=== PATIENT | female | born 1990 | race Two or more races ===

== ENCOUNTER 2019-08-18 18:30 | Emergency (ER) | payer SELFPAY ==
[2019-08-18] MEDS ORDERED: Naloxone 0.4 MG/ML SDV IVPUSH ONE ×2 (18:32→18:37)
[2019-08-18] MEDS ORDERED: Sodium Chloride 0.9% 1,000 ML IV SCH (18:35)
[2019-08-18 19:12] LABS: CHLORIDE,CL 106 mmol/L (98-107); SODIUM,NA 142 mmol/L (136-145)
[2019-08-18 19:21] LABS: BARBITURATE SCREEN,URINE NEGATIVE (NEGATIVE); BENZODIAZEPINES SCREEN,URINE NEGATIVE (NEGATIVE); EDDP,URINE SCREEN NEGATIVE (NEGATIVE); TCA SCREEN,URINE NEGATIVE (NEGATIVE); THC SCREEN,URINE 50 NG/ML NEGATIVE (NEGATIVE)
--- NOTE | 2019-08-18 19:45 | EDM.PDOC ---
ED HPI GENERAL MEDICAL PROBLEM - General Chief Complaint: General Stated Complaint: unresponsive Time Seen by Provider: 08/18/19 18:56 Source of Information: Reports: EMS, Family History Limitations: Reports: Altered Mental Status, Intoxication - History of Present Illness INITIAL COMMENTS - FREE TEXT/NARRATIVE: Patient brought to ER via EMS after family found her in her care/less responsive. Drinking Vodka/unknown quantity since early this afternoon. Patient approx 8 weeks with supposedly scheduled in two days (Sunday) Patient not suicidal per family. They do not say if patient has had previous issues with ETOH/drugs. Single. Has boyfriend. No other information received from family. - Related Data Allergies Allergy/AdvReac Type Severity Reaction Status Date / Time No Known Allergies Allergy Verified 08/14/14 12:40 Home Meds: Home Meds diazePAM [Valium] 10 mg PO Q6H PRN #20 tablet 08/14/14 [Rx] Past Medical History - History Comment History Comment: Unknown Social & Family History - Tobacco Use Smoking Status *Q: Unknown Ever Smoked - Living Situation & Occupation Living situation: Reports: with Significant Other, with Family Occupation: Employed ED ROS GENERAL - Review of Systems Review Of Systems: Unable To Obtain Reason Not Obtained: patient unresponsive ED EXAM, GENERAL - Physical Exam Exam: See Below Exam Limited By: Intoxication General Appearance: Other (Intermittent moaning/moving all 4 limbs spontaneously and equally. Restless. Moves to sternal rub. Does not open eyes to voice. Moves away from discomfort when Kee placed. ) Eye Exam: Bilateral Eye: Other (patient not focusing eyes. Random movement, in tandem. Pupils small, 2mm, minimally reactive) Ears: Normal External Exam Nose: No: Nasal Deformity, Nasal Swelling, Nasal Drainage Throat/Mouth: Normal Lips, Normal Teeth, Normal Voice, No Airway Compromise Head: Atraumatic, Normocephalic Neck: Supple Respiratory/Chest: No Respiratory Distress, Lungs Clear, Normal Breath Sounds, No Accessory Muscle Use, Chest Non-Tender Cardiovascular: Normal Peripheral Pulses, Regular Rate, Rhythm, No Murmur GI/Abdominal: Normal Bowel Sounds, Soft, Non-Tender, No Distention, No Mass (Female) Exam: Normal External Exam, Other (incontinent) Rectal (Female) Exam: Deferred Back Exam: No: Paraspinal Tenderness, Vertebral Tenderness Extremities: Normal Range of Motion, No Pedal Edema, Normal Capillary Refill Neurological: Other (equal tone/strength all limbs, no posturing) Skin Exam: Warm, Dry, Intact, Normal Color Course - Orders/Labs/Meds Orders: Active Orders 24 hr Category Date Time Status Blood Glucose Check, Bedside [RC] ONETIME Care 08/18/19 18:51 Active Cardiac Monitoring [RC] . DIRECTED Care 08/18/19 18:48 Active EKG Documentation Completion [RC] ASDIRECTED Care 08/18/19 18:46 Active Insert Kee Catheter [Insert Urinary Catheter] [OM.PC] Care 08/18/19 19:00 Ordered Q24H Urinary Catheter Assessment [RC] ASDIRECTED Care 08/18/19 18:49 Active Chest 1V Frontal [CR] Stat Exams 08/18/19 18:55 Ordered D5 1/2 NS w/ 40 mEq/L KCl 1,000 ml Med 08/18/19 19:30 Ordered IV ASDIRECTED Potassium Chloride Riders [KCl 10 MEQ in Water 50 ML] Med 08/18/19 19:27 Ord ered 10 meq Premix Bag 1 bag IV ONETIME Sodium Chloride 0.9% [Normal Saline] 1,000 ml Med 08/18/19 18:35 Active IV ASDIRECTED Medication Orders Sodium Chloride (Normal Saline) 1,000 mls @ 999 mls/hr IV ASDIRECTED TIM Potassium Chloride/Dextrose/Sod Cl (D5 1/2 Ns W/ 40 Meq/L Kcl) 1,000 mls @ 100 mls/hr IV ASDIRECTED TIM Potassium Chloride 10 meq/ (Premix) 50 mls @ 50 mls/hr IV ONETIME ONE Stop: 08/18/19 20:26 Labs: Laboratory Tests 08/18/19 08/18/19 08/18/19 Range/Units 18:40 18:42 18:42 WBC 11.7 H (4.0-10.2) K/uL RBC 4.71 (3.77-5.09) M/uL Hgb 14.3 (11.7-15.5) g/dL Hct 41.5 (34.0-46.0) % MCV 88.1 (84.0-98.0) fL MCH 30.4 (28.2-33.3) pg MCHC 34.5 (31.7-36.0) g/dL RDW 13.2 (11.2-14.1) % Plt Count 258 (150-350) K/uL Neut % (Auto) 73.4 (45.0-80.0) % Lymph % (Auto) 21.5 (10.0-50.0) % [place] % (Auto) 4.2 (2.0-14.0) % Eos % (Auto) 0.6 (0.0-5.0) % Baso % (Auto) 0.3 (0.0-2.0) % Neut # (Auto) 8.55 H (1.40-7.00) K/uL Lymph # (Auto) 2.51 (0.50-3.50) K/uL [place] # (Auto) 0.49 (0.00-1.00) K/uL Eos # (Auto) 0.07 (0.00-0.50) K/uL Baso # (Auto) 0.03 (0.00-0.20) K/uL Sodium 142 (136-145) mmol/L Potassium 2.8 L* (3.5-5.1) mmol/L Chloride 106 (98-107) mmol/L Carbon Dioxide 25.0 (21.0-32.0) mmol/L BUN 8 (7-18) mg/dL Creatinine 0.53 (0.51-1.17) mg/dL Est Cr Clr Drug Dosing TNP Estimated GFR (MDRD) > 60 mL/min Glucose 97 (74-106) mg/dL Lactic Acid (0.4-2.0) mmol/L Calcium 8.3 L (8.5-10.1) mg/dL Magnesium 2.3 (1.8-2.4) mg/dL Total Bilirubin 0.1 L (0.2-1.0) mg/dL AST 13 L (15-37) U/L ALT 21 (12-78) U/L Alkaline Phosphatase 69 (46-116) IU/L Total Protein 7.1 (6.4-8.2) g/dL Albumin 3.7 (3.4-5.0) g/dL HCG, Quant 346072 mIU/mL Specimen Type Urine Color Urine Appearance Urine pH (5.0-9.0) Ur Specific [place] (1.005-1.030) Urine Protein (NEGATIVE) mg/dL Urine Glucose (UA) (NEGATIVE) mg/dL Urine Ketones (NEGATIVE) mg/dL Urine Occult Blood (NEGATIVE) Urine Nitrite (NEGATIVE) Urine Bilirubin (NEGATIVE) Urine Urobilinogen (0.2-1.0) E.U./dL Ur Leukocyte Esterase (NEGATIVE) Urine RBC /HPF Urine WBC /HPF Ur Epithelial Cells /LPF Urine Bacteria (NONE TO FEW) /HPF Urine HCG, Qual Urine Opiates Screen Negative (NEGATIVE) Ur Buprenorphine Scrn Negative (NEGATIVE) Ur Oxycodone Screen Negative (NEGATIVE) Ur EDDP (Meth Metab) Negative (NEGATIVE) Ur Barbiturates Screen Negative (NEGATIVE) Ur Tricyclics Screen Negative (NEGATIVE) Ur Amphetamine Screen Negative (NEGATIVE) U Methamphetamines Scrn Negative (NEGATIVE) Urine MDMA Screen Negative (NEGATIVE) U Benzodiazepines Scrn Negative (NEGATIVE) U Cocaine Metab Screen Negative (NEGATIVE) U Marijuana (THC) Screen Negative (NEGATIVE) Ethyl Alcohol 0.326 H (0.000-0.080) g/dL 08/18/19 08/18/19 08/18/19 Range/Units 18:42 18:42 18:42 WBC (4.0-10.2) K/uL RBC (3.77-5.09) M/uL Hgb (11.7-15.5) g/dL Hct (34.0-46.0) % MCV (84.0-98.0) fL MCH (28.2-33.3) pg MCHC (31.7-36.0) g/dL RDW (11.2-14.1) % Plt Count (150-350) K/uL Neut % (Auto) (45.0-80.0) % Lymph % (Auto) (10.0-50.0) % [place] % (Auto) (2.0-14.0) % Eos % (Auto) (0.0-5.0) % Baso % (Auto) (0.0-2.0) % Neut # (Auto) (1.40-7.00) K/uL Lymph # (Auto) (0.50-3.50) K/uL [place] # (Auto) (0.00-1.00) K/uL Eos # (Auto) (0.00-0.50) K/uL Baso # (Auto) (0.00-0.20) K/uL Sodium (136-145) mmol/L Potassium (3.5-5.1) mmol/L Chloride (98-107) mmol/L Carbon Dioxide (21.0-32.0) mmol/L BUN (7-18) mg/dL Creatinine (0.51-1.17) mg/dL Est Cr Clr Drug Dosing Estimated GFR (MDRD) mL/min Glucose (74-106) mg/dL Lactic Acid 2.4 H (0.4-2.0) mmol/L Calcium (8.5-10.1) mg/dL Magnesium (1.8-2.4) mg/dL Total Bilirubin (0.2-1.0) mg/dL AST (15-37) U/L ALT (12-78) U/L Alkaline Phosphatase (46-116) IU/L Total Protein (6.4-8.2) g/dL Albumin (3.4-5.0) g/dL HCG, Quant mIU/mL Specimen Type Ur[place]ath Urine Color Light yellow Urine Appearance Clear Urine pH 6.5 (5.0-9.0) Ur Specific [place] <= 1.005 (1.005-1.030) Urine Protein Negative (NEGATIVE) mg/dL Urine Glucose (UA) Negative (NEGATIVE) mg/dL Urine Ketones Negative (NEGATIVE) mg/dL Urine Occult Blood Negative (NEGATIVE) Urine Nitrite Negative (NEGATIVE) Urine Bilirubin Negative (NEGATIVE) Urine Urobilinogen 0.2 (0.2-1.0) E.U./dL Ur Leukocyte Esterase Negative (NEGATIVE) Urine RBC Not seen /HPF Urine WBC Not seen /HPF Ur Epithelial Cells Occasional /LPF Urine Bacteria Occasional (NONE TO FEW) /HPF Urine HCG, Qual Positive Urine Opiates Screen (NEGATIVE) Ur Buprenorphine Scrn (NEGATIVE) Ur Oxycodone Screen (NEGATIVE) Ur EDDP (Meth Metab) (NEGATIVE) Ur Barbiturates Screen (NEGATIVE) Ur Tricyclics Screen (NEGATIVE) Ur Amphetamine Screen (NEGATIVE) U Methamphetamines Scrn (NEGATIVE) Urine MDMA Screen (NEGATIVE) U Benzodiazepines Scrn (NEGATIVE) U Cocaine Metab Screen (NEGATIVE) U Marijuana (THC) Screen (NEGATIVE) Ethyl Alcohol (0.000-0.080) g/dL Meds: Medications Generic Name Dose Route Start Last Admin Trade Name Freq PRN Reason Stop Dose Admin Sodium Chloride 1,000 mls @ 999 mls/hr 08/18/19 18:35 Normal Saline IV ASDIRECTED [facility] Potassium Chloride/Dextrose/Sod Cl 1,000 mls @ 100 mls/hr 08/18/19 19:30 D5 1/2 Ns W/ 40 Meq/L Kcl IV ASDIRECTED TIM Potassium Chloride 10 meq/ 50 mls @ 50 mls/hr 08/18/19 19:27 Premix IV 08/18/19 20:26 ONETIME ONE Discontinued Medications Generic Name Dose Route Start Last Admin Trade Name Paramjitq PRN Reason Stop Dose Admin Naloxone HCl 0.4 mg 08/18/19 18:32 Narcan IVPUSH 08/18/19 18:33 ONETIME ONE Naloxone HCl 0.4 mg 08/18/19 18:37 Narcan IVPUSH 08/18/19 18:38 ONETIME ONE - Re-Assessments/Exams Free Text/Narrative Re-Assessment/Exam: 08/18/19 19:47 labs drawn. Kee placed. Over 1L of light colored urine returned. IV sites x2 placed. Chest xray unremarkable. EKG showed NSR. Vital signs stable. NS bolus initiated. Labs showed lactic acid of 2.4, ETOH 0.326, Potassium 2.8, WBC 11.7, +HCG. IV fluids with K ordered. Negative drug screen. Patient stable. Call placed to [facility] and arrangements for patient to be transferred to their facility for further care arranged with , Hospitalist. Patient noted to be opening eyes more often, making eye contact with staff. Departure - Departure Time of Disposition: 19:51 Disposition: DC/Tfer to Acute Hospital 02 Condition: Good Clinical Impression: First trimester , Hypokalemia Alcohol poisoning Qualifiers: Encounter type: initial encounter Injury intent: undetermined intent Qualified Code(s): T51.94XA - Toxic effect of unspecified alcohol, undetermined, initial encounter - Discharge Information Referrals: PCP,None [Primary Care Provider] - - My Orders Last 24 Hours: My Active Orders 08/18/19 18:35 Sodium Chloride 0.9% [Normal Saline] 1,000 ml IV ASDIRECTED 08/18/19 18:46 EKG Documentation Completion [RC] ASDIRECTED 08/18/19 18:48 Cardiac Monitoring [RC] . DIRECTED 08/18/19 18:49 Urinary Catheter Assessment [RC] ASDIRECTED 08/18/19 18:51 Blood Glucose Check, Bedside [RC] ONETIME 08/18/19 18:55 Chest 1V Frontal [CR] Stat 08/18/19 19:00 Insert Kee Catheter [Insert Urinary Catheter] [OM.PC] Q24H 08/18/19 19:27 Potassium Chloride Riders [KCl 10 MEQ in Water 50 ML] 10 meq Premix Bag 1 bag IV ONETIME 08/18/19 19:30 D5 1/2 NS w/ 40 mEq/L KCl 1,000 ml IV ASDIRECTED - Assessment/Plan Last 24 Hours: My Active Orders 08/18/19 18:35 Sodium Chloride 0.9% [Normal Saline] 1,000 ml IV ASDIRECTED 08/18/19 18:46 EKG Documentation Completion [RC] ASDIRECTED 08/18/19 18:48 Cardiac Monitoring [RC] . DIRECTED 08/18/19 18:49 Urinary Catheter Assessment [RC] ASDIRECTED 08/18/19 18:51 Blood Glucose Check, Bedside [RC] ONETIME 08/18/19 18:55 Chest 1V Frontal [CR] Stat 08/18/19 19:00 Insert Kee Catheter [Insert Urinary Catheter] [OM.PC] Q24H 08/18/19 19:27 Potassium Chloride Riders [KCl 10 MEQ in Water 50 ML] 10 meq Premix Bag 1 bag IV ONETIME 08/18/19 19:30 D5 1/2 NS w/ 40 mEq/L KCl 1,000 ml IV ASDIRECTED
[2019-08-18] MEDS: D5 1/2 NS w/ 40 mEq/L KCl 1,000 ML IV SCH (19:59)
[2019-08-18] MEDS: Potassium Chloride Riders 10 MEQ in Premix Bag 1 BAG IV ONE (19:59)
[2019-08-18] MEDS: Sodium Chloride 0.9% 1,000 ML IV SCH (20:00)
[2019-08-19 02:27] VITALS: BP 107/68; PULSE 90
== END 2019-08-18 20:20 ==
LOC: LL.ED 18:30
DX: O9A.211 Injury, poisoning and certain other consequences of external causes complicating pregnancy, first trimester (principal); T51.94XA Toxic effect of unspecified alcohol, undetermined, initial encounter; O99.281 Endocrine, nutritional and metabolic diseases complicating pregnancy, first trimester; E87.6 Hypokalemia; Z3A.08 8 weeks gestation of pregnancy
CPT/HCPCS: 36415; 51702; 71045; 80053; 80305-QW; 80307; 81001; 81025; 83605; 83735; 84702; 85025; 93005; 96365; 96368; 99284; 99285-25; J2310; J3480; J7030